=== PATIENT | female | born 1960 | race Caucasian/White ===

== ENCOUNTER 2019-11-05 10:23 | Outpatient (CLI) | payer BC, SELFPAY ==
--- NOTE | ~2019-11-05 | MM_ITS ---
EXAMINATION: MM screening [facility] BI w silas HISTORY: Screening mammogram TECHNIQUE: Craniocaudal and mediolateral oblique 3-D tomosynthesis images were obtained and synthetic 2-D images were generated. CAD analysis was submitted and interpreted. COMPARISON: 05/25/2018, 05/11/2017, 02/04/2016 bilateral digital screening mammogram examinations BREAST PARENCHYMAL COMPOSITION: The breasts are almost entirely fatty. FINDINGS: Stable subcentimeter circumscribed opacities are noted bilaterally. There is no evidence of suspicious mass, calcification, or architectural distortion to suggest malignancy in either breast. There has been no suspicious interval change. IMPRESSION: 1. No mammographic evidence of malignancy. 2. Recommend routine screening mammography in one year. BI-RADS Category 2: Benign finding(s). Reviewed, dictated and finalized at location A.
== END 2019-11-05 10:24 | disposition home or self-care (01) ==
PROVIDERS: PCP Family Medicine; Visit Provider Family Medicine
DX: Z12.31 Encounter for screening mammogram for malignant neoplasm of breast (principal)
CPT/HCPCS: 77063; 77067

== ENCOUNTER 2021-01-15 10:08 | Outpatient (CLI) | payer BC, SELFPAY ==
--- NOTE | ~2021-01-15 | MM_ITS ---
EXAMINATION: MM screening [facility] BI w silas HISTORY: Screening mammogram TECHNIQUE: Craniocaudal and mediolateral oblique 3-D tomosynthesis images were obtained and synthetic 2-D images were generated. CAD analysis was submitted and interpreted. COMPARISON: , 05/25/2018, 05/11/2017, 02/04/2016 bilateral screening mammogram examinations BREAST PARENCHYMAL COMPOSITION: The breasts are almost entirely fatty. FINDINGS: Stable approximately 8 mm circumscribed opacity is again noted in the posterior central lef t breast slightly lateral to the mid sagittal plane, not significant change since 02/03/2015. Approximately 2.8 x 5.7 mm irregular opacity is noted on MLO view in central left breast (MLO Tomosyn thesis image 29/81). Diagnostic left mammogram is recommended, with ultrasound if required. Otherwise there is no evidence of suspicious mass, calcification, or architectural distortion to sugg est malignancy in either breast. There has been no other suspicious interval change. IMPRESSION: 1. Irregular opacity in the central left breast on MLO view 2. Diagnostic left mammogram is recommended, with ultrasound if required BI-RADS Category 0: Incomplete: Needs additional imaging evaluation. Reviewed, dictated and finalized at location A.
== END 2021-01-15 10:09 | disposition home or self-care (01) ==
PROVIDERS: PCP Family Medicine; Visit Provider Family Medicine
DX: Z12.31 Encounter for screening mammogram for malignant neoplasm of breast (principal); R92.8 Other abnormal and inconclusive findings on diagnostic imaging of breast
CPT/HCPCS: 77063; 77067

== ENCOUNTER 2021-02-05 11:42 | Outpatient (CLI) | payer BC, SELFPAY ==
--- NOTE | ~2021-02-05 | MM_ITS ---
EXAMINATION: MM diagnostic [facility] LT w silas HISTORY: Left breast asymmetry on screening mammogram TECHNIQUE: Additional 3-D tomosynthesis images of the left breast were performed and synthetic 2-D im ages were generated. CAD analysis was submitted and interpreted. COMPARISON: 01/15/2021,11/05/2019, 05/25/2018 FINDINGS: There is a return to baseline fibroglandular appearance with spot compression of the left b reast in the area questioned on screening mammogram. A mass in the posterior third of the breast at t he 4:00 location is stable on multiple examinations, consistent with a benign finding. IMPRESSION: 1. No mammographic evidence of malignancy. 2. Recommend routine screening mammography in one year. BI-RADS Category 2: Benign finding(s). Reviewed, dictated and finalized at location A. NETWORK TECHNICIAN
== END 2021-02-05 11:43 | disposition home or self-care (01) ==
LOC: ANHIMG 11:44
PROVIDERS: PCP Family Medicine; Visit Provider Family Medicine
DX: N63.23 Unspecified lump in the left breast, lower outer quadrant (principal)
CPT/HCPCS: 77061; 77065; G0279

== ENCOUNTER 2021-08-10 01:36 | Day surgery (SDC) | payer BC, SELFPAY ==
[2021-07-27 14:03] VITALS: BMI 36.6
[2021-08-10 06:29] VITALS: BP 152/75; PULSE 80; RESP 18; TEMP 36.2; O2SAT 98
--- NOTE | 2021-08-10 06:37 | P.PNAN_ITS ---
Anes - Initial Pre Proc Eval Procedure: Operation Date: 08/10/21 07:30 Proposed Procedures p Screening Colonoscopy - John Camp MD Date/Time: 08/10/21 06:37 Surgeon: John Camp MD Pre Op Diagnosis: hx of colon polyps, family hx of colon cancer Patient Data Age: 61 Gender: F Height: 1.65 m Weight: 98.9 kg Last Vital Signs Temp 36.2 C L 08/10/21 06:29 Pulse 80 08/10/21 06:29 Resp 18 08/10/21 06:29 BP 152/75 H 08/10/21 06:29 Pulse Ox 98 08/10/21 06:29 Allergies Allergy/AdvReac Type Severity Reaction Status Date / Time No Known Allergies Allergy Mild Verified 08/10/21 06:28 Home Medications Medication Instructions Recorded Confirmed Type aspirin 81 mg tablet,delayed 81 mg PO DAILY 04/02/19 07/27/21 History release ascorbic acid (vitamin C) 500 mg 500 mg PO DAILY 10/04/19 07/27/21 History capsule,extended release multivitamin,[id number]-ecqs-[id number] 1 tablet PO DAILY 04/07/20 07/27/21 History omega-3 fatty acids 1,000 mg 1,000 mg PO DAILY 03/23/21 07/27/21 History capsule atorvastatin 20 mg tablet See Rx Instructions .ROUTE 07/10/21 07/27/21 Rx .COMPLEX #90 tablet Patient hx anesthesia problems: none Family hx anesthesia problems: none Results Review: All pre-operative results and documents have been reviewed as part of the pre-operative evaluation. [facility] Past Medical History Medical History (Updated 08/10/21 @ 06:38 by Timmy Palmer DO) Abnormal colonoscopy Hepatitis C antibody test negative (04/09/17) Hyperlipidemia Surgical History Surgical History History of bilateral tubal ligation (~1999) Family History Family History Father Acute myocardial infarction, Onset Age: 62 Family history of coronary artery disease, Onset Age: 62 Family history of elevated blood lipids Sibling Carcinoma of colon Mother Carcinoma of colon Social History Social History (Updated 03/23/21 @ 10:08 by Patricia Ray CMA) Smoking status: Former smoker Tobacco type: cigarettes Alcohol intake: current Alcohol use details: rarely Substance use: never Substance use type: does not use Living arrangements: with family Spiritual care concerns: No Anes - Eval Final PreProcedure Day of Procedure 08/10/21 06:37 Patient weight: obese Heart: regular rate and rhythm Lungs: clear to auscultation and normal air movement Airway: Mallampati scale class II Neurological: alert and oriented Last oral intake: >/= 8 hours ASA classification: II Emergent: no Anesthetic plan: proceed Anesthesia type and monitoring: general GIVS and standard monitoring Results Review: All pre-operative results and documents have been reviewed as part of the pre-operative evaluation. Informed Consent: The patient's anesthetic plan and its attendant risks and benefits were discussed with the patient/family/POA. Questions were solicited and answers provided to the satisfaction of the patient/family/POA.
[2021-08-10] MEDS: LACTATED RINGERS 1,000 ML 150 ML IV CONT (06:38)
--- NOTE | 2021-08-10 07:11 | WPDGICN ---
Assessment and Plan Assessment and plan (1) Family history of colon cancer in mother: Code(s): Z80.0 - Family history of malignant neoplasm of digestive organs Status: Acute Assessment and Plan: Patient has a family history of colon cancer in her mother and also 2 brothers. Plan is for surveillance colonoscopy now and at 5 year intervals in the future. GI Consult Note Consult date/time: 08/10/21 07:11 HPI: Lanny Tobin is a 61 year old female Presents for screening colonoscopy. Patient's current weight appetite and bowel movements are normal. She denies abdominal pain. She has had no bleeding. Family history is significant 2 brothers and her mother have had colon cancer. Patient states that she has normal bowel movements with no bleeding. Her last colonoscopy 5 years ago was unremarkable. She reports a distant history of colon polyps perhaps 10 years ago. Review of Systems Review of Systems: All systems reviewed & are unremarkable except as noted in HPI and below PMFSH Past Medical History Medical History (Updated 08/10/21 @ 07:13 by John Camp MD) Abnormal colonoscopy Hepatitis C antibody test negative (04/09/17) Hyperlipidemia Surgical History Surgical History History of bilateral tubal ligation (~1999) Family History Family History Father Acute myocardial infarction, Onset Age: 62 Family history of coronary artery disease, Onset Age: 62 Family history of elevated blood lipids Sibling Carcinoma of colon Mother Carcinoma of colon Social History Social History (Updated 03/23/21 @ 10:08 by Patricia Ray [employer]) Smoking status: Former smoker Tobacco type: cigarettes Alcohol intake: current Alcohol use details: rarely Substance use: never Substance use type: does not use Living arrangements: with family Spiritual care concerns: No Meds Home Medications and Allergies Home Medications Medication Instructions Recorded Confirmed Type aspirin 81 mg tablet,delayed 81 mg PO DAILY 04/02/19 07/27/21 History release ascorbic acid (vitamin C) 500 mg 500 mg PO DAILY 10/04/19 07/27/21 History capsule,extended release multivitamin,[id number]-qeml-nxcfldlm 1 tablet PO DAILY 04/07/20 07/27/21 History omega-3 fatty acids 1,000 mg 1,000 mg PO DAILY 03/23/21 07/27/21 History capsule atorvastatin 20 mg tablet See Rx Instructions .ROUTE 07/10/21 07/27/21 Rx .COMPLEX #90 tablet Allergies Allergy/AdvReac Type Severity Reaction Status Date / Time No Known Allergies Allergy Mild Verified 08/10/21 06:28 Vital Signs Vital Signs - 24 hr 08/10/21 06:29 Temperature 97.2 F L Pulse Rate 80 Respiratory Rate 18 Blood Pressure 152/75 H Pulse Oximetry 98 Exam Narrative: Physical exam reveals patient to be alert. Vital signs stable. HEENT exam is unremarkable. Patient is anicteric. Lungs are clear to auscultation and percussion. Heart is without murmur or extra sounds. Abdominal exam bowel sounds present soft nontender with no organomegaly. Digital external rectal exam is normal.
[2021-08-10 07:50] VITALS: BP 105/46; PULSE 73; RESP 20; O2SAT 98
[2021-08-10 08:00] VITALS: BP 111/60; PULSE 63; RESP 18; O2SAT 99
[2021-08-10 08:10] VITALS: BP 111/58; PULSE 60; RESP 12; O2SAT 99
== END 2021-08-10 08:20 | disposition home or self-care (01) ==
PROVIDERS: PCP Family Medicine; Visit Provider Internal Medicine Gastroenterology
PROC: 0DJD8ZZ Inspection of Lower Intestinal Tract, Via Natural or Artificial Opening Endoscopic (ICD-10-PCS; CPT 45378; principal; 2021-08-10 07:30)
DX: Z12.11 Encounter for screening for malignant neoplasm of colon (principal); K64.8 Other hemorrhoids; Z80.0 Family history of malignant neoplasm of digestive organs; E78.5 Hyperlipidemia, unspecified; Z87.891 Personal history of nicotine dependence; Z79.82 Long term (current) use of aspirin; E66.9 Obesity, unspecified; Z68.36 Body mass index [BMI] 36.0-36.9, adult
CPT/HCPCS: 45378; J2704; J7120

== ENCOUNTER 2022-06-30 15:58 | Outpatient (CLI) | payer BC, SELFPAY ==
--- NOTE | ~2022-06-30 | MM_ITS ---
EXAMINATION: MM screening [facility] BI w silas HISTORY: Screening mammogram TECHNIQUE: Craniocaudal and mediolateral oblique 3-D tomosynthesis images were obtained and synthetic 2-D images were generated. CAD analysis was submitted and interpreted. COMPARISON: 02/05/2021 diagnostic left mammogram 01/15/2021 bilateral screening mammogram 11/05/2019 bilateral screening mammogram BREAST PARENCHYMAL COMPOSITION: The breasts are almost entirely fatty. FINDINGS: Stable circumscribed low-density posterior lower outer left breast opacity since 11/05/2019. Stable circumscribed low-density anterior mid outer left breast circumscribed opacity since 0. There is no evidence of suspicious mass, calcification, or architectural distortion to suggest mal ignancy in either breast. There has been no suspicious interval change. IMPRESSION: 1. No mammographic evidence of malignancy. 2. Recommend routine screening mammography in one year. BI-RADS Category 2: Benign finding(s). Reviewed, dictated and finalized at location A.
== END 2022-06-30 15:59 | disposition home or self-care (01) ==
LOC: ANHIMG 15:59
PROVIDERS: PCP Family Medicine; Visit Provider Family Medicine
DX: Z12.31 Encounter for screening mammogram for malignant neoplasm of breast (principal)
CPT/HCPCS: 77063; 77067

== ENCOUNTER 2023-09-05 09:06 | Outpatient (CLI) | payer BC, SELFPAY ==
--- NOTE | ~2023-09-05 | MM_ITS ---
EXAMINATION: MM screening [facility] BI w silas HISTORY: Screening TECHNIQUE: Craniocaudal and mediolateral oblique 3-D tomosynthesis images were obtained and synthetic 2-D images were generated. CAD analysis was submitted and interpreted. COMPARISON: Comparison to multiple prior studies sequentially, with oldest reviewed study dated 05/11. BREAST PARENCHYMAL COMPOSITION: Not dense: There are scattered areas of fibroglandular density. FINDINGS: There is no evidence of suspicious mass, calcification, or architectural distortion to sugg est malignancy in either breast. There has been no suspicious interval change. IMPRESSION: 1. No mammographic evidence of malignancy. 2. Recommend routine screening mammography in one year. BI-RADS Category 1: Negative Reviewed, dictated and finalized at location B.
== END 2023-09-05 09:07 | disposition home or self-care (01) ==
PROVIDERS: PCP Family Medicine; Visit Provider Family Medicine
DX: Z12.31 Encounter for screening mammogram for malignant neoplasm of breast (principal)
CPT/HCPCS: 77063; 77067

== ENCOUNTER 2023-10-13 10:06 | Outpatient (CLI) | payer BC, SELFPAY ==
--- NOTE | ~2023-10-13 | XR_ITS ---
XR hip BI 2V w AP pelvis Ordering provider: Trupti Bai DO History: . M54.50 - Low back pain, unspecified . Comparison: None. FINDINGS: BONES: No acute fracture or dislocation. HIP JOINT SPACES: Normal. SACROILIAC JOINT SPACES/LUMBAR SPINE: The sacroiliac joint spaces are normal. Mild degenerative dixon es of the visualized lower lumbar spine. PUBIC SYMPHYSIS: Normal. SOFT TISSUES: Normal. IMPRESSION: No acute osseous abnormality of the bilateral hips and pelvis. Reviewed, dictated and finalized at location A.
--- NOTE | ~2023-10-13 | XR_ITS ---
XR lumbar spine min 4V DATE: 10/13/2023 10:36 INDICATION: Low back pain TECHNIQUE: AP, lateral, bilateral oblique views COMPARISON: None FINDINGS: There is osteopenia. Minimal anterolisthesis at L4-5 due to degenerative change at the apophyseal joints. Otherwise normal alignment of the lumbar spine. No fracture or bone destruction, spondylolysis or spo ndylolisthesis is evident. The lumbar pedicles are intact. There is moderate degenerative disease at L1-2, mild degenerative disc disease at L2-3 and L3-4. L4-5 and L5-S1 interspaces appear well preserved. The sacroiliac joints are intact. IMPRESSION: Mild lumbar spondylosis Reviewed, dictated and finalized at location J. IMPRESSION: Mild lumbar spondylosis
== END 2023-10-13 10:07 ==
LOC: GOSHIMG 10:07
PROVIDERS: PCP Family Medicine; Visit Provider Family Medicine
DX: M43.06 Spondylolysis, lumbar region (principal)
CPT/HCPCS: 72110; 73521

== ENCOUNTER 2024-11-08 14:25 | Outpatient (CLI) | payer BC, SELFPAY ==
--- NOTE | ~2024-11-08 | DEXA_ITS ---
Bone Density Report Name: MICHAEL ZENDEJAS I Age: 64 Sex: Female Ethnicity: White Date of : 1960 Indication: postmenopausal; screening for osteoporosis; parental hip fracture; Referring Provider: Trupti Bai Study: Bone densitometry was performed. Exam Date: November 08, 2024 Accession number: [id number] Bone Density: Region BMD T-score Z-score Classification AP Spine(L1-L4) 1.090 0.4 2.0 Normal Femoral Neck (Left) 0.650 -1.8 -0.4 Osteopenia Total Hip (Left) 1.077 1.1 2.2 Normal Femoral Neck (Right) 0.658 -1.7 -0.3 Osteopenia Total Hip (Right) 1.037 0.8 1.9 Normal Femoral Neck Mean 0.654 -1.8 -0.3 Osteopenia Total Hip Mean 1.057 0.9 2.1 Normal World Health Organization criteria for BMD impression classify patients as: Normal (T-score at or above -1.0), Osteopenia (T-score between -1.0 and -2.5), or Osteoporosis (T-score at or below -2.5). 10-year Fracture Risk(1): Major Osteoporotic Fracture 17% Hip Fracture 1.0% Reported Risk Factors: [place] (), Neck BMD=0.650, BMI=35.3, parental fracture (1) FRAX(R) Version 3.08. Fracture probability calculated for an untreated patient. Fracture probability may be lower if the patient has received treatment. Clinical Information Provided by Patient: Parent has had a hip fracture Has used the following medications: Vitamin D, Calcium Patient maximum height was 55 Menopause Age: 51 No regular weight bearing exercise Drinks caffeinated beverages Onset of menses at age 17 Number of children 3 Missed period for more than 6 months in a row Impression: The patient has low bone mass, based on the Left Femoral Neck T-score. The patient has risk factors, including: parental hip fracture. Discussion: BONE DENSITY IS LOW AT ONE OR MORE SKELETAL SITES. This patient's lowest T-score is low at one or more skeletal sites. It meets the World Health Organization's (WHO) criteria for ?low bone mass? (T-score between -1.0 and -2.5). The patient's 10-year risk of fracture as calculated by FRAX is less than the threshold where pharmacological therapy is recommended by the National Osteoporosis Foundation (NOF). However, all treatment decisions require clinical judgment and consideration of individual patient factors, including patient preferences, comorbidities, previous drug use, risk factors not captured in the FRAX model (e.g., frailty, falls, vitamin D deficiency, increased bone turnover, interval significant decline in bone density) and possible under or overestimation of fracture risk by FRAX. The patient should follow a healthful lifestyle (good nutrition with adequate calcium and vitamin D, and appropriate weight-bearing exercise). Follow-Up: Consider repeating this study in 2 to 3 years to reassess this patient's status, or sooner if there is some new clinical indication. Reported by: SHERRIE on 11/08/2024 3:02:00 PM. Reviewed, dictated and finalized at location A.
--- NOTE | ~2024-11-08 | MM_ITS ---
EXAMINATION: MM screening [facility] BI w silas HISTORY: Screening mammogram TECHNIQUE: Craniocaudal and mediolateral oblique 3-D tomosynthesis images were obtained and synthetic 2-D images were generated. CAD analysis was submitted and interpreted. COMPARISON: 09/05/2023, 06/30/2022, 02/05/2021, 01/15/2021 BREAST PARENCHYMAL COMPOSITION:Not Dense. The breasts are almost entirely fatty FINDINGS: No suspicious mass, calcification, or architectural distortion are identified in either breast to suggest malignancy. There has been no suspicious interval change. IMPRESSION: No mammographic evidence of malignancy. Recommend routine screening mammography in one year. BI-RADS Category 1: Negative Reviewed, dictated and finalized at location .
== END 2024-11-08 14:26 | disposition home or self-care (01) ==
PROVIDERS: PCP Family Medicine; Visit Provider Family Medicine
DX: Z12.31 Encounter for screening mammogram for malignant neoplasm of breast (principal); Z78.0 Asymptomatic menopausal state; M85.89 Other specified disorders of bone density and structure, multiple sites
CPT/HCPCS: 77063; 77067; 77080

== ENCOUNTER 2024-12-18 14:39 | Outpatient (CLI) | payer BC, SELFPAY ==
--- OUTSIDE RECORDS SUMMARY | 2024-12-18 14:52 | XMS_ITS | Clinical Summary ---
Author Organization [facility] [place] [address] Address [address] [place] [id number] Care Team Providers Care Dynamics Ax Technical Architect Name Role Phone Unknown, Notinfile Primary Care Provider Unavail able Allergies No known active allergies Medications atorvastatin (LIPITOR) 20 mg tablet Take 1 tablet (20 mg total) by mouth daily 5 Active lisinopriL (PRINIVIL,ZESTRIL ) 5 mg tablet Take 1 tablet (5 mg total) by mouth daily 5 Active ascorbic acid, vitamin C, (VITAMIN C) 500 mg capsule, extended release CR capsule Take 1 capsule (500 mg total) by mouth daily 0 Active omega-3 fatty acids-fish oil 300-1,000 mg capsule daily 2 Active multivit,tx with iron,minerals (COMPLETE MULTIVITAMIN ORAL) daily 1 Active polycarbophil (FIBERCON) 625 mg tablet Take 1 tablet (625 mg total) by mouth daily Active triamcinolone (KENALOG) 0.1 % creamIndications: Skin Inflammation Apply topically 3 (three) times a day for 7 days Do not apply cream to face around eyes or to genitals 30 g 5 Active predniSONE (DELTASONE) 20 mg tabletIndications :Wasp sting, accidental or unintentional, initial encounter,Localiz ed swelling of right thumb Take 1 tablet (20 mg) by mouth daily for 2 days 2 tablet 5 12/11/19 25 Active Problems No known active problems Encounters Date Type Department Care Team Description 12/08/2024 8:45 AM CDT Office Visit [facility] at [address] [id number] Perri Rankin NP Wasp sting, accidental or unintentional, initial encounter (Primary Dx); Localized swelling of right thumb from Last 3 Months Surgical History Surgery Date Site/Laterality Comments TUBAL LIGATION Medical History Medical History Date Comments Hypertension Hyperlipidemia Social History Tobacco Use Types Packs/Day Years Used Date Smoking Tobacco: Former Cigarettes Smokeless Tobacco: Never Tobacco Cessation:Counseling Given: Not Answered Comments Unknown Sex and Gender Information Value Date Recorded Sex Assigned at Not on file 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 Gender Identity Not on file Sexual Orientation Not on file Obstetrics History Last Filed Vital Signs Vital Sign Reading Time Taken Comments Blood Pressure 148/80 12/08/2024 8:49 AM CDT Pulse 93 12/08/2024 8:49 AM CDT Temperature 36.7 C (98.1 F) 12/08/2024 8:49 AM CDT Respiratory Rate 18 12/08/2024 8:49 AM CDT Oxygen Saturation 96% 12/08/2024 8:49 AM CDT Inhaled Oxygen Concentration - - Weight 95.9 kg (211 lb 8 oz) 12/08/2024 8:49 AM CDT Height 165.1 cm (5' 5) 12/08/2024 8:49 AM CDT Body Mass Index 35.2 12/08/2024 8:49 AM CDT Plan of Treatment Health Maintenance Due Date Last Done Comments Breast Cancer Screening-Mammogram 1960 Cervical Cancer Screening 1960 Colon Cancer Screening-Colonoscopy 1960 Depression Screening 1960 Hepatitis C Screening 1960 Hepatitis B Screening 08/08/1979 Regular Well Visit/Exam 18-64 08/08/1979 Zoster Vaccine (1 of 2) 08/08/2011 Influenza Vaccine (#1) 2024 , 01/10/2023, 01/17/2022, Additional history exists DTaP/Tdap/Td Vaccine (3 - Td or Tdap) 01/12/2034 01/13/2024, 09/25/2015, 01/28/2005 Covid-19 Vaccine Completed 01/13/2024, , 11/28/2021, Additional history exists Pneumococcal vaccine <65 Aged Out No longer eligible based on patient's age to complete this topic Insurance [employer] [facility] Care Teams Dynamics Ax Technical Architect Relationship Specialty Start Date End Date Unknown, Notinfile PCP - General 12/08/24
--- NOTE | 2024-12-18 14:55 | ECG_ITS ---
Test Date: 2024-12-18 15:07:01 Measurements Intervals [place] Rate: 85 P: 50 [place]: 183 QRS: -21 QRSD: 110 T: 33 QT: 374 QTc: 447 Interpretive Statements SINUS RHYTHM POSSIBLE LEFT ATRIAL ENLARGEMENT [-0.1mV P WAVE IN V1/V2] BORDERLINE LEFT AXIS DEVIATION [QRS AXIS < -20] LOW QRS VOLTAGE IN PRECORDIAL LEADS [QRS DEFLECTION < 1.0 mV IN CHEST LEADS] PATTERN CONSISTENT WITH PULMONARY DISEASE No previous ECG available for comparison Electronically Signed On 12-18-2024 16:57:32 CDT by Regine Richardson M.D.
[2024-12-18 15:15] LABS: Hematocrit 42.1 % (37.0-47.0); Hemoglobin 13.7 g/dL (12.0-15.0); Immature Granulocyte Percent A 0.2 % (0-0.5); Lymphocytes Absolute Auto 2.37 K/mm3 (0.9-3.2); Mean Corpuscular HGB Conc 32.5 g/dl (32-36); Mean Corpuscular Hemoglobin 30.1 pg (26-34); Mean Corpuscular Volume 92.5 fl (80-100); Nucleated Red Blood Cells Absolute Auto 0.000 K/mm3 (0.0-0.012); Nucleated Red Blood Cells Perc 0.0 % (0.0-0.2); Platelet Count Result 271 k/mm3 (150-375); Red Blood Count 4.55 M/mm3 (4.2-5.4); White Blood Count 10.4 K/mm3 (4.5-10.0)
== END 2024-12-18 14:40 | disposition home or self-care (01) ==
LOC: ANHSURGERY 14:43
PROVIDERS: PCP Family Medicine; Visit Provider Surgery
DX: I10 Essential (primary) hypertension (principal); K64.8 Other hemorrhoids; K64.4 Residual hemorrhoidal skin tags
CPT/HCPCS: 36415; 85025; 93005

== ENCOUNTER 2024-12-20 00:31 | Day surgery (SDC) | payer BC, SELFPAY ==
[2024-12-14 14:36] VITALS: BMI 35.0
--- NOTE | 2024-12-14 14:45 | PC.NURSE ---
[facility] has started construction of its new state of the art ER which will open Spring 2026. With this, we anticipate parking may be a challenge for some our surgical patients and families. Parking spaces are limited but are available for all Surgical, obstetrics, and ER patients sharing this lot. If you arrive and find you are having a hard time finding a parking space, please note that we understand the challenges, please drive around the hospital and park near Hospital Entrance 1. When you enter this entrance, you can ask a volunteer to direct or take you back to the surgical waiting area to check in. We appreciate everyone?s understanding of these expected challenges while we build for your future. Report to the Outpatient Waiting Room, entrance under the green pavilion located off [address], at time __ on date __. Planned Procedure Time: __.? Time changes happen often and if your time is changed the preop area will call you the afternoon before. - You and your visitor will be asked to self-screen and do not enter if you have any COVID symptoms. Please call surgeon if you need to reschedule. - A mask is optional within the hospital at this time. Patients may have clear liquids (water, carbonated beverages, clear teas, apple juice) until 3 hours prior to surgery with a maximum of 20 ounces. - No food from midnight 12-19-2024 until time of surgery and no smoking, or chewing tobacco (or any form of nicotine). No chewing gum, candy or mints. Patient has written instruction in her hand from Dr Leo's office about dulcolax and fleets enema's. Take only the following medications with a SIP of water on the morning of surgery: __None____ DO NOT STOP ANY OF YOUR OTHER PRESCRIPTION MEDICATIONS PRIOR TO SURGERY EXCEPT THE FOLLOWING Hold all vitamins and supplements for 3 days per anesthesiologist. Medications to discontinue per physician Date to take last [id number] Please no make-up, nail kinyarwanda, hairspray, perfume, deodorant, or body powder the day of surgery.? No jewelry (including any body piercings) or valuables the day of surgery, leave them at home.? Please take a shower or bath the night before, or the morning of, surgery with an antibacterial soap.? Wear comfortable, loose fitting clothing.? - Jewelry must be removed prior to entering the operating room.? Rings and piercings that are not removed may be cut off. - The hospital will not accept responsibility for valuables.? - Please leave all valuables, including medications, at home the day of surgery. If you are going home after surgery, a licensed escort car driver must drive you home.? - NO public transportation without another adult if you receive anesthesia. - We recommend that an adult stay with you for 24 hours following discharge. - We also recommend that you do not drive, make important decision, drink alcoholic beverages, or take any drugs that were not prescribed by your health care provider for at least 24 hours after your discharge time. Follow any additional instructions given to you from your surgeon. Telephone instructions given to __Lanny___and asked if any additional questions and then verbalized understanding. Patient advised to call surgeon office or pre surgery nurse liaison [phone] if any additional questions.
--- NOTE | 2024-12-14 16:09 | PC.NURSE ---
Addendum entered by Jean Carlos Newman RN 12/17/24 12:17: Clear liquids only day before surgery. Original Note: [facility] has started construction of its new state of the art ER which will open Spring 2026. With this, we anticipate parking may be a challenge for some our surgical patients and families. Parking spaces are limited but are available for all Surgical, obstetrics, and ER patients sharing this lot. If you arrive and find you are having a hard time finding a parking space, please note that we understand the challenges, please drive around the hospital and park near Hospital Entrance 1. When you enter this entrance, you can ask a volunteer to direct or take you back to the surgical waiting area to check in. We appreciate everyone?s understanding of these expected challenges while we build for your future. Report to the Outpatient Waiting Room, entrance under the green pavilion located off [address], at time _1200_ on date _[id number]_. Planned Procedure Time: _2pm_.? Time changes happen often and if your time is changed the preop area will call you the afternoon before. - You and your visitor will be asked to self-screen and do not enter if you have any COVID symptoms. Please call surgeon if you need to reschedule. - A mask is optional within the hospital at this time. Patients may have clear liquids (water, carbonated beverages, clear teas, apple juice) until 3 hours prior to surgery with a maximum of 20 ounces. - No food from midnight 12-19-2024 until time of surgery and no smoking, or chewing tobacco (or any form of nicotine). No chewing gum, candy or mints. Patient has written instruction in her hand from Dr Leo's office about dulcolax and fleets enema's. Take only the following medications with a SIP of water on the morning of surgery: __None____ DO NOT STOP ANY OF YOUR OTHER PRESCRIPTION MEDICATIONS PRIOR TO SURGERY EXCEPT THE FOLLOWING Hold all vitamins and supplements for 3 days per anesthesiologist. Medications to discontinue per physician Date to take last [phone] Please no make-up, nail serbian, hairspray, perfume, deodorant, or body powder the day of surgery.? No jewelry (including any body piercings) or valuables the day of surgery, leave them at home.? Please take a shower or bath the night before, or the morning of, surgery with an antibacterial soap.? Wear comfortable, loose fitting clothing.? - Jewelry must be removed prior to entering the operating room.? Rings and piercings that are not removed may be cut off. - The hospital will not accept responsibility for valuables.? - Please leave all valuables, including medications, at home the day of surgery. If you are going home after surgery, a licensed school bus driver/mechanic must drive you home.? - NO public transportation without another adult if you receive anesthesia. - We recommend that an adult stay with you for 24 hours following discharge. - We also recommend that you do not drive, make important decision, drink alcoholic beverages, or take any drugs that were not prescribed by your health care provider for at least 24 hours after your discharge time. Follow any additional instructions given to you from your surgeon. Telephone instructions given to __Lanny___and asked if any additional questions and then verbalized understanding. Patient advised to call surgeon office or pre surgery nurse liaison [phone] if any additional questions.
--- NOTE | 2024-12-17 15:16 | PM.SD2 ---
Same Day Admit/Disch: HPI History of Present Illness Chief complaint: prolapse bleeding internal/external hemorrhoids Narrative: Lanny Tobin is a 64 year old female who has been experiencing episodes of rectal bleeding for the last 5 years. She typically will have at least a couple of episodes of rectal bleeding every 3 months. She was seen in the office and found to have internal and external hemorrhoids with prolapse. She also was noted to have internal hemorrhoids. She takes psyllium husk capsules 0.4 g daily. Her last colonoscopy was in July of 2021. This was negative other than large internal hemorrhoids. She is taken to surgery at this time for excision internal and external hemorrhoids, probably 1 complex. Also plan is to proceed with rubber-band ligation of internal hemorrhoids as needed. [facility] Past Medical History Medical History Folliculitis Hepatitis C antibody test negative (04/09/17) Hyperlipidemia Abnormal colonoscopy Surgical History Surgical History History of bilateral tubal ligation (~1999) Family History Family History Father Acute myocardial infarction, Onset Age: 62 Family history of coronary artery disease, Onset Age: 62 Family history of elevated blood lipids Sibling Carcinoma of colon Mother Carcinoma of colon Social History Social History Years smoked: 34 Smoking status: Former smoker Tobacco type: cigarettes Smoking end date: 12/14/20 Alcohol intake: current Alcohol use details: rarely Substance use: never Substance use type: does not use Lack of Transportation: No Lack of Food: Never True Current Housing: I Have Housing Concerned About Future Housing: No Difficulty Paying Gas/Electric Bills: No Difficulty Paying for Meds: No Currently Unemployed: No Education: Bachelor's Degree Difficulty w/ Childcare or Family Care: No Living arrangements: with family Occupation/Education: occupation Gender identity (if verbalized by the patient): Female Spiritual care concerns: No Agree to blood products: Yes Same Day Admit/Disch: Med Pre-admit Medications Home Medications ?Medication ?Instructions ?Recorded ?Confirmed ?Type aspirin 81 mg tablet,delayed 81 mg PO DAILY 04/02/19 12/20/24 History release ascorbic acid (vitamin C) 500 mg 500 mg PO DAILY 10/04/19 12/14/24 History capsule,extended release (Vitamin C) multivitamin,[id number]-[id number]-[id number] 1 tablet PO DAILY 04/07/20 12/14/24 History (Complete Multivitamin tablet) omega-3 fatty acids 1,000 mg 1,000 mg PO DAILY 03/23/21 12/14/24 History capsule (Fish Oil Concentrate) atorvastatin 20 mg tablet See Rx Instructions .Route 07/06/24 12/14/24 Rx .COMPLEX #90 tabs lisinopril 5 mg tablet 5 mg PO DAILY #90 tabs 10/11/24 12/14/24 Rx calcium carb-ergocalciferol (vit 1 tablet PO DAILY 12/14/24 12/14/24 History D2) 600 mg calcium-200 unit tablet ibuprofen 600 mg tablet 600 mg PO Q6H PRN pain #14 tabs 12/20/24 Rx mineral oil 15 ml PO BID #473 mL 12/20/24 Rx oxycodone-acetaminophen 5 mg-325 0.5 - 1 tablet PO Q4H PRN pain #15 12/20/24 Rx mg tablet (Percocet) tabs psyllium husk (with sugar) 3.4 1 tbsp PO BID #60 packets 12/20/24 Rx gram oral powder packet (Metamucil (with sugar)) Review of Systems Review of Systems All systems reviewed & are unremarkable except as noted in HPI and below (HPI) Exam Const: General: comfortable, no acute distress, alert and awake HENMT: Head: normocephalic and atraumatic Mouth: Yes Normal oral and palatal mucosa present Eyes: Conjunctivae: conjunctivae normal Pupils: Equal, round and reactive pupils present EOM: EOMs intact bilaterally Neck: Neck: normal visual inspection, no lymphadenopathy and nontender Resp: Effort & Inspection: normal respiratory effort Auscultation: clear to auscultation bilaterally Cardio: Rate: regular rate Rhythm: regular rhythm Heart sounds: no gallops, no murmurs and no rubs GI: Inspection: non-distended GI Palp: Yes Soft to palpation, No Tenderness to palpation present (GI), No Hepatomegaly present and No Splenomegaly present Rectal Exam: normal sphincter tone, External hemorrhoid(s) present, Internal hemorrhoid(s) present, No abscess, hemorrhoids (Left lateral prolapsed internal and external hemorrhoids, internal hemorrho), No Laceration(s) present (GI), No mass and No tenderness Skin: Lesions: no lesions Rashes: no rashes Neuro: General: no focal motor deficits and CN's II-XI intact bilaterally Cranial nerves: Yes Equal, round and reactive pupils present, Yes Bilaterally intact EOM present, Yes facial symmetry and Yes Midline tongue present Speech: normal speech Motor exam (neuro): 5/5 motor strength present throughout and Motor abnormalities not present Extrem: General: no clubbing, cyanosis or edema and edema Psych: Affect: normal affect Thought process: Normal thought process present Insight: Good insight present (Psych) DS: Summary Time Spent with Patient Time attestation: Total time spent providing and/or coordinating discharge services: DS: Admitting Diagnosis Discharge Date December 20, 2024 Admitting Diagnosis Bleeding, prolapsed, internal and external hemorrhoids-plan to proceed with excision of the prolapsed internal and external hemorrhoidal complex. By digital palpation it seems she has additional internal hemorrhoids which will be rubber-band ligated unless excision is needed. Explained the procedure, risks, benefits, and usual recovery. I have also discussed with her postoperative care. All questions were answered. She understands and agrees to go ahead. Hypertension Chronic constipation DS: Discharge Diagnosis Discharge Diagnosis (1) Internal prolapsed hemorrhoids: Code(s): K64.8 - Other hemorrhoids Status: Chronic Assessment and Plan: Patient underwent excision right anterior complex internal and external hemorrhoids as well as rubber-band ligation of right posterior internal hemorrhoids per Dr. Leo as an outpatient on 12/20/2024 (2) External hemorrhoids with complication: Code(s): K64.4 - Residual hemorrhoidal skin tags Status: Chronic Discharge Plan Discharge Patient Disposition: Home Discharge Instructions: Discharge Instructions for Anorectal Surgery Dr. Leo 1. May discharge from Outpatient Surgery area or Surgical Floor when stable per protocol. 2. Activity: Remove dressing and start Sitz baths in a.m. following surgery. Once at home, all patients should take 10-20 minute Sitz baths at least three times per day and as needed after each bowel movement. Rest around the house for the next 1-2 days, taking frequent walks. No driving for 2-3 days or while taking narcotic pain medications. 3. Diet: Regular diet with 6-8 glasses of water per day. Eat plenty of fruits and vegetables. 4. Medications: ? Resume all home medications. ? Metamucil 1 tablespoon PO twice a day ? Mineral Oil 1 tablespoon PO twice a day ? Percocet 5/325 0.5 PO q 4 hours as needed for moderate pain. ? Percocet 5/325 1 PO q 6 hours as needed for severe pain. ? Ibuprofen 600mg p.o. Q 6 hours as needed for moderate pain ? Acetaminophen 650 mg PO q 6 hours as needed for mild pain. ? Tucks cream pads to perianal skin after each Sitz bath. Prescriptions for the above medications will be provided at the time of discharge or they can be bought [id number]-clupbmn. 5. Follow-up: call office for appointment in 10-14 days or as previously scheduled. 6. Call office if: ? Sudden increase in pain, swelling or incisional drainage or bleeding occurs. ? Fever > 101 degrees F. ? Nausea and vomiting occur. ? Inability to urinate. Patient Language: Prydeinig Stand Alone Forms: General Discharge Instructions Follow-up/Referrals: Enmanuel Leo MD [Physician, General Surgery] - 2 Weeks Referral Note: Call for appointment Discharge Medications: New ibuprofen 600 mg tablet 600 mg PO Q6H PRN (Reason: pain) Qty: 14 0RF Metamucil (with sugar) 3.4 gram powder in packet 1 tbsp PO BID Qty: 60 0RF mineral oil Oil 15 ml PO BID Qty: 473 0RF oxycodone-acetaminophen [Percocet] 5-325 mg tablet 0.5 - 1 tablet PO Q4H PRN (Reason: pain) Qty: 15 0RF Continued ascorbic acid (vitamin C) [Vitamin C] 500 mg capsule, extended release 500 mg PO DAILY Complete Multivitamin Tablet 1 tablet PO DAILY omega-3 fatty acids [Fish Oil Concentrate] 1,000 mg capsule 1,000 mg PO DAILY lisinopril 5 mg tablet 5 mg PO DAILY Qty: 90 1RF calcium carbonate-vitamin D2 600 mg calcium- 200 unit tablet 1 tablet PO DAILY aspirin 81 mg tablet,delayed release (DR/EC) 81 mg PO DAILY atorvastatin 20 mg tablet See Rx Instructions .ROUTE .COMPLEX Qty: 90 1RF Dose Instruction: 20 MG ORALLY DAILY Rx Instructions: 20 MG ORALLY DAILY Discontinued psyllium husk [Daily Fiber] 0.4 gram capsule 0.4 g PO DAILY
[2024-12-20] VITALS (8 sets, daily range): BP systolic 94–146; BP diastolic 56–78; PULSE 72–90; RESP 14–18; TEMP 36.3–36.4; O2SAT 98–100
--- OUTSIDE RECORDS SUMMARY | 2024-12-20 00:34 | XMS_ITS | Clinical Summary ---
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 [facility] Care Teams Paramedic Instructor Relationship Specialty Start Date End Date Unknown, Notinfile PCP - General 12/08/24
--- NOTE | 2024-12-20 12:38 | WPDHPUPDATE1 ---
History and Physical Update Update Date/Time: 12/20/24 12:38 History and Physical has been reviewed, including an updated exam of the patient. There are NO changes in the patient's condition. Risks, benefits, and alternatives have been discussed and questions answered. Patient agrees to proceed with procedure.
--- NOTE | 2024-12-20 14:03 | WPDANESEPPF ---
Anes - Initial Pre Proc Eval Procedure: Operation Date: 12/20/24 14:00 Proposed Procedures p Excision Single Column External/Internal Hemorrhoids, Rubber Band Ligation of Internal Hemorrhoids - Enmanuel Leo MD Date/Time: 12/20/24 14:03 Surgeon: Enmanuel Leo MD Pre Op Diagnosis: prolapse bleeding internal/external hemorrhoids Patient Data Age: 64 Gender: F Height: 1.65 m Weight: 94.6 kg Last Vital Signs Temp 36.3 C L 12/20/24 13:31 Pulse 90 12/20/24 13:31 Resp 18 12/20/24 13:31 BP 146/78 H 12/20/24 13:31 Pulse Ox 98 12/20/24 13:31 O2 Del Method Room Air 12/20/24 13:31 Allergies Allergy/AdvReac Type Severity Reaction Status Date / Time No Known Allergies Allergy Mild Verified 12/20/24 13:29 Home Medications ?Medication ?Instructions ?Recorded ?Confirmed ?Type aspirin 81 mg tablet,delayed 81 mg PO DAILY 04/02/19 12/20/24 History release ascorbic acid (vitamin C) 500 mg 500 mg PO DAILY 10/04/19 12/14/24 History capsule,extended release (Vitamin C) multivitamin,ae-mhrg-kvhdlohk 1 tablet PO DAILY 04/07/20 12/14/24 History (Complete Multivitamin tablet) omega-3 fatty acids 1,000 mg 1,000 mg PO DAILY 03/23/21 12/14/24 History capsule (Fish Oil Concentrate) psyllium husk 0.4 gram capsule 0.4 g PO DAILY 10/07/22 12/14/24 History (Daily Fiber) atorvastatin 20 mg tablet See Rx Instructions .Route 07/06/24 12/14/24 Rx .COMPLEX #90 tabs lisinopril 5 mg tablet 5 mg PO DAILY #90 tabs 10/11/24 12/14/24 Rx calcium carb-ergocalciferol (vit 1 tablet PO DAILY 12/14/24 12/14/24 History D2) 600 mg calcium-200 unit tablet Patient hx anesthesia problems: none Family hx anesthesia problems: none Results Review: All pre-operative results and documents have been reviewed as part of the pre-operative evaluation. [facility] Past Medical History Medical History Folliculitis Hepatitis C antibody test negative (04/09/17) Hyperlipidemia Abnormal colonoscopy Surgical History Surgical History History of bilateral tubal ligation (~1999) Family History Family History Father Acute myocardial infarction, Onset Age: 62 Family history of coronary artery disease, Onset Age: 62 Family history of elevated blood lipids Sibling Carcinoma of colon Mother Carcinoma of colon Social History Social History Years smoked: 34 Smoking status: Former smoker Tobacco type: cigarettes Smoking end date: 12/14/20 Alcohol intake: current Alcohol use details: rarely Substance use: never Substance use type: does not use Lack of Transportation: No Lack of Food: Never True Current Housing: I Have Housing Concerned About Future Housing: No Difficulty Paying Gas/Electric Bills: No Difficulty Paying for Meds: No Currently Unemployed: No Education: Bachelor's Degree Difficulty w/ Childcare or Family Care: No Living arrangements: with family Occupation/Education: occupation Gender identity (if verbalized by the patient): Female Spiritual care concerns: No Agree to blood products: Yes Anes - Eval Final PreProcedure Day of Procedure 12/20/24 14:03 Patient weight: obese Heart: regular rate and rhythm Lungs: clear to auscultation Airway: Mallampati scale class II Neurological: alert and oriented Last oral intake: >/= 8 hours ASA classification: III Emergent: no Anesthetic plan: proceed Anesthesia type and monitoring: general ETT and standard monitoring Results Review: All pre-operative results and documents have been reviewed as part of the pre-operative evaluation. Informed Consent: The patient's anesthetic plan and its attendant risks and benefits were discussed with the patient/family/POA. Questions were solicited and answers provided to the satisfaction of the patient/family/POA.
[2024-12-20] MEDS: ceFAZolin 2 GM in SODIUM CHLORIDE 0.9% IV 50 ML 100 ML IVPB (14:38)
--- NOTE | 2024-12-20 14:43 | W.PM.PROC2 ---
Procedure Note - Detailed Date of Procedure 12/20/24 Pre-op Diagnosis prolapse bleeding internal/external hemorrhoids Post-op Diagnosis Same Procedure Performed Excision single column internal and external hemorrhoids, rubber-band ligation internal hemorrhoids Surgeon Enmanuel Leo MD Global Marketing Manager Gisela Dennison ENTERPRISE BUSINESS ARCHITECT Anesthesia General and Local Indications Patient has had persistent intermittent rectal bleeding for several years. She had a colonoscopy which showed only large internal hemorrhoids. She was seen in the office and found to have a large stage IV prolapsed internal and external hemorrhoid. There was also evidence of internal hemorrhoids. She is taken to surgery now for hemorrhoid treatment. Findings The right anterior quadrant showed a stage IV prolapsed internal hemorrhoid with external hemorrhoid. The right posterior quadrant had a large internal hemorrhoid. Description of Procedure Patient was taken to surgery and induced into general anesthesia. She was then placed in prone pacheco-knife position. The buttocks were taped apart. Prep and drape was carried out. I examined the perianal area and the anal canal with Hill-Husain anoscope. Findings were as noted above. I then infiltrated local using 0.5% Marcaine with epinephrine 20 cc deep subdermal, 20 cc interest sphincteric. We then used the Hill-Husain anoscope and exposed the right anterior stage IV hemorrhoid. This was excised and sent to pathology labeled right anterior complex internal and external hemorrhoids. The wound was closed with running locking 3-0 chromic suture. There was still a large right posterior internal hemorrhoid but no associated external hemorrhoid. I rubber-band ligated the right posterior internal hemorrhoid. I then reviewed the inguinal canal once again. There was no evidence of any left-sided hemorrhoids or other anal canal pathology. We then dressed the rectum with Xeroform gauze, fluffs, Medipore tape, and Promise panties. The patient was returned to a supine position. She was awakened and extubated. She was taken to recovery in good condition. Estimated Blood Loss -5 Drains No Packing No Pathology Yes (Right anterior quadrant internal and external hemorrhoidal complex) Complications None Condition Stable Disposition PACU [facility] Billing Surgery - Charge Forward: Surgery Billing (Excision single column internal and external hemorrhoids, rubber-band ligation internal hemorrhoids.)
--- NOTE | 2024-12-20 15:08 | S_PTH ---
PATIENT: Lanny Tobin I LOC: [facility] U#:[id number] AGE/SX: 64/F ROOM: RE12/20/[address]: Enmanuel Leo MD : 1960 BED: DIS: 12/20/2024 SPEC #: [id number] RECD: 12/21/24 07:57 STATUS: JUNG REQ #: [id number] MAI: 12/20/24 15:[address]: Enmanuel Leo DEPT: [facility] Surgical RECD BY: Shadi Borges ENTERED: 12/21/24 07:57 SP TYPE: Surgical OTHR DR: Trupti Bai DO Tissues: A - Hemorroid Procedures: Hematoxylin and Eosin Stain Gross and Microscopic Level 3
[2024-12-20] MEDS: BUPIVACAINE/EPINEPHRINE 0.5% 50 ML VIAL 30 ML INFILTRATE (15:10)
[2024-12-20] MEDS: LACTATED RINGERS 1,000 ML 30 ML IV CONT ×2 (15:23)
== END 2024-12-20 17:14 | disposition home or self-care (01) ==
PROVIDERS: PCP Family Medicine; Visit Provider Surgery
PROC: (CPT 46255; principal; 2024-12-20 14:00)
DX: K64.3 Fourth degree hemorrhoids (principal); K64.4 Residual hemorrhoidal skin tags; Z87.891 Personal history of nicotine dependence; E66.9 Obesity, unspecified; Z68.34 Body mass index [BMI] 34.0-34.9, adult
CPT/HCPCS: 46255; 88304; J0690; J1100; J2003; J2250; J2405; J2704; J3010; J7120